=== PATIENT | male | born 1930 ===

== ENCOUNTER 2020-04-20 14:43 | Emergency (ER) | payer MEDICARE, OTHER ==
[~2020-04-20] VITALS: Ht 170.2 cm; Wt 60.9 kg
[2020-04-20] MEDS ORDERED: acetaminophen 325mg tablet PO ONE (15:25)
[2020-04-20 16:47] VITALS: BP 114/56
== END 2020-04-20 16:49 | disposition home or self-care (01) ==
LOC: ER 14:43
DX: M25.531 Pain in right wrist (principal); E11.22 Type 2 diabetes mellitus with diabetic chronic kidney disease; N18.6 End stage renal disease; Z88.8 Allergy status to other drugs, medicaments and biological substances; Z99.2 Dependence on renal dialysis
CPT/HCPCS: 29125; 73110; 99283